=== PATIENT | male | born 1935 | race Caucasian/White ===

== ENCOUNTER 2017-12-07 19:15 | Emergency (ER) | payer MEDICARE, OTHER ==
[2017-12-07 21:12] LABS: #Eosinphils 0.2 thou/uL (0.0-0.7); #Lymphocytes 2.7 thou/uL (1.20-3.40); #Monocytes 0.7 thou/uL (0.11-0.59); #Neutrophils 5.1 thou/uL (1.40-6.50); %Basophils 0.4 % (0.0-1.0); %Eosinophils 2.1 % (0.0-10.0); %Lymphocytes 30.8 % (21.0-51.0); %Monocytes 7.7 % (0.0-10.0); Hemoglobin 13.5 g/dL (14.0-18.0); Mean Corpuscular HGB CONC 33.1 g/dL (32.0-36.0); Mean Corpuscular Hemoglobin 32.1 pg (27.0-31.0); Mean Corpuscular Volume 96.8 fl (80.0-94.0); Mean Platelet Volume 10.4 fL (7.4-10.4); Platelet Count 158 thou/uL (130-400); Red Blood Cell (RBC) Count 4.21 mill/uL (4.70-6.10); White Blood Cell (WBC) Count 8.6 thou/uL (4.8-10.8)
[2017-12-07 21:33] LABS: ALT (SGPT) 8 U/L (8-55); AST (SGOT) 9 U/L (5-34); Albumin 3.8 g/dL (3.4-4.8); Alkaline Phosphatase 70 U/L (40-150); Anion Gap 14 mmol/L (10-20); BUN (Urea Nitrogen) 32 mg/dL (8.4-25.7); Bilirubin, Total 0.6 mg/dL (0.2-1.2); Calc. Creatinine Clearance 0 mL/min (70-130); Calcium 9.1 mg/dL (7.8-10.44); Carbon Dioxide 23 mmol/L (23-31); Chloride 104 mmol/L (98-107); Estimated GFR-MDRD 48; Globulin 3.1 g/dL (2.4-3.5); Glucose 307 mg/dL (83-110); Potassium 4.2 mmol/L (3.5-5.1); Protein, Total 6.9 g/dL (5.8-8.1); Sodium 137 mmol/L (136-145)
[2017-12-07 21:37] LABS: CKMB 1.1 ng/mL (0-6.6); Troponin I Less than 0.010 ng/mL (< 0.028)
--- NOTE | 2017-12-07 22:15 | RAD ---
PORTABLE AP CHEST X-RAY 12/07/17 HISTORY: Fall secondary to weakness. COMPARISON: 03/25/17 FINDINGS: Cardiac silhouette is magnified by projection but stable in size from the prior exam. There is elevat ion of the right hemidiaphragm. There are linear increased densities at the left lung base which coul d be related to superimposition of structures or atelectasis. Lungs are otherwise clear. Vascular panda cifications are seen in an ectatic thoracic aorta. No other interval change. IMPRESSION: 1. Mild elevation of the right hemidiaphragm. 2. Linear density left lung base which may represent atelectasis and/or superimposition of struc tures. No definite consolidation or pleural fluid is present. 3. Remote right sided rib fractures. 4. No acute cardiopulmonary process. POS: [facility]
[2017-12-07 22:28] LABS: Bilirubin Negative (Negative); Blood, Urine Negative (Negative); Clarity CLEAR (Clear); Glucose, Urine (Dipstick) 100 mg/dL (Negative); Leukocyte Negative (Negative); Nitrite Negative (Negative); Protein, Urine (Dipstick) Negative (Neg-Trace); Specific Gravity, Urine 1.022 (1.002-1.036); Urobilinogen 0.2 mg/dL (0.2-1.0); pH, Urine 5.5 (5.0-9.0)
== END 2017-12-08 04:25 ==
LOC: ERS 19:15
DX: R53.1 Weakness (principal); R26.2 Difficulty in walking, not elsewhere classified; E03.9 Hypothyroidism, unspecified; J44.9 Chronic obstructive pulmonary disease, unspecified; E11.9 Type 2 diabetes mellitus without complications; I10 Essential (primary) hypertension; Z87.891 Personal history of nicotine dependence; Z79.82 Long term (current) use of aspirin; Z79.899 Other long term (current) drug therapy; Z79.84 Long term (current) use of oral hypoglycemic drugs
CPT/HCPCS: 36415; 36416; 71045; 80053; 81003; 82553; 84484; 85025; 93005; 96360

== ENCOUNTER 2018-01-08 09:51 | Inpatient (IN) | payer MEDICARE, OTHER ==
[2018-01-08 10:32] LABS: #Basophils 0.1 thou/uL (0.0-0.2); #Eosinphils 0.3 thou/uL (0.0-0.7); #Lymphocytes 2.9 thou/uL (1.20-3.40); #Monocytes 0.9 thou/uL (0.11-0.59); #Neutrophils 7.5 thou/uL (1.40-6.50); %Basophils 0.9 % (0.0-1.0); %Eosinophils 2.2 % (0.0-10.0); %Lymphocytes 24.5 % (21.0-51.0); %Monocytes 8.1 % (0.0-10.0); %Neutrophils 64.2 % (42.0-75.0); Hemoglobin 12.9 g/dL (14.0-18.0); Mean Corpuscular HGB CONC 33.6 g/dL (32.0-36.0); Mean Corpuscular Hemoglobin 32.7 pg (27.0-31.0); Mean Corpuscular Volume 97.5 fl (80.0-94.0); Mean Platelet Volume 8.7 fL (7.4-10.4); Platelet Count 242 thou/uL (130-400); RBC Distribution Width 11.5 % (11.5-14.5); Red Blood Cell (RBC) Count 3.95 mill/uL (4.70-6.10); White Blood Cell (WBC) Count 11.7 thou/uL (4.8-10.8)
[2018-01-08 10:37] LABS: Prothrombin Time 13.4 SEC (12.0-14.7)
[2018-01-08 10:39] LABS: PTT 22.4 SEC (22.9-36.1)
[2018-01-08 10:47] LABS: ALT (SGPT) 10 U/L (8-55); AST (SGOT) 20 U/L (5-34); Albumin 3.7 g/dL (3.4-4.8); Alkaline Phosphatase 111 U/L (40-150); Anion Gap 15 mmol/L (10-20); BUN (Urea Nitrogen) 22 mg/dL (8.4-25.7); Bilirubin, Total 0.5 mg/dL (0.2-1.2); Calc. Creatinine Clearance 0 mL/min (70-130); Calcium 9.5 mg/dL (7.8-10.44); Carbon Dioxide 20 mmol/L (23-31); Chloride 109 mmol/L (98-107); Estimated GFR-MDRD 53; Globulin 3.3 g/dL (2.4-3.5); Glucose 106 mg/dL (83-110); Potassium 4.3 mmol/L (3.5-5.1); Sodium 140 mmol/L (136-145)
[2018-01-08 10:50] LABS: CKMB 1.7 ng/mL (0-6.6); Troponin I Less than 0.010 ng/mL (< 0.028)
--- NOTE | 2018-01-08 13:28 | CT ---
CT BRAIN: DATE: 01/08/18. COMPARISON: Comparison is made to previous exam from 03/10/16. FINDINGS: Noncontrast-enhanced CT images of the brain were obtained. Images demonstrate cortical atrophy and deep white matter ischemic changes. Multiple old areas of cerebellar infarctions seen. Areas of hypodensity are also seen in the left posterior frontal lobe region compatible with old area s of stroke. No acute stroke seen. IMPRESSION: No evidence of acute intracranial abnormality is seen. Findings discussed with Dr. Lynn at 10:17 a.m. on 01/08/18. CODE CR POS: [facility]ANNA
[2018-01-08 14:21] LABS: Bilirubin Negative (Negative); Blood, Urine Negative (Negative); Clarity CLEAR (Clear); Glucose, Urine (Dipstick) Negative (Negative); Leukocyte Negative (Negative); Nitrite Negative (Negative); Protein, Urine (Dipstick) Negative (Neg-Trace); Specific Gravity, Urine 1.015 (1.002-1.036); Urobilinogen 0.2 mg/dL (0.2-1.0); pH, Urine 5.5 (5.0-9.0)
--- NOTE | 2018-01-08 14:23 | RAD ---
PORTABLE CHEST: History: 83-year-old with right sided weakness. Date: 01-08-18 Comparison: 12-07-17 FINDINGS: AP chest demonstrates mild pulmonary vascular congestion. No evidence of effusions, pneumonia, or pne umothorax is seen. IMPRESSION: Unremarkable AP chest. POS: [facility]
[2018-01-08 16:34] LABS: Troponin I Less than 0.010 ng/mL (< 0.028)
[2018-01-08] MEDS ORDERED: Dextrose 50% Abboject 50 ML SYRINGE SLOW IVP PRN ×2 (17:52→17:53)
[2018-01-08] MEDS ORDERED: Dextrose 5% in Water 1,000 ML IV PRN ×2 (17:52→17:53)
[2018-01-08] MEDS ORDERED: Acetaminophen 325 MG TAB PO PRN (17:53)
[2018-01-08 19:08] LABS: Troponin I Less than 0.010 ng/mL (< 0.028)
[2018-01-08] MEDS: Sodium Chloride 0.9% 1,000 ML IV SCH (20:35)
[2018-01-08] MEDS: Famotidine 20 MG TAB PO SCH (20:36)
[2018-01-09 03:19] VITALS: BMI 35.8
[2018-01-09] MEDS: Sodium Chloride 0.9% 1,000 ML IV SCH ×2 (04:27→15:20)
[2018-01-09 05:32] LABS: #Basophils 0.1 thou/uL (0.0-0.2); #Eosinphils 0.3 thou/uL (0.0-0.7); #Monocytes 0.7 thou/uL (0.11-0.59); #Neutrophils 3.5 thou/uL (1.40-6.50); %Eosinophils 3.5 % (0.0-10.0); %Lymphocytes 39.4 % (21.0-51.0); %Monocytes 9.7 % (0.0-10.0); %Neutrophils 46.3 % (42.0-75.0); Hemoglobin 11.9 g/dL (14.0-18.0); Mean Corpuscular Hemoglobin 32.5 pg (27.0-31.0); Mean Corpuscular Volume 95.5 fl (80.0-94.0); Mean Platelet Volume 8.8 fL (7.4-10.4); Platelet Count 251 thou/uL (130-400); RBC Distribution Width 11.3 % (11.5-14.5); Red Blood Cell (RBC) Count 3.65 mill/uL (4.70-6.10); White Blood Cell (WBC) Count 7.5 thou/uL (4.8-10.8)
[2018-01-09 06:15] LABS: Anion Gap 13 mmol/L (10-20); BUN (Urea Nitrogen) 20 mg/dL (8.4-25.7); Calc. Creatinine Clearance 78 mL/min (70-130); Carbon Dioxide 21 mmol/L (23-31); Chloride 107 mmol/L (98-107); Estimated GFR-MDRD 66; Glucose 100 mg/dL (83-110); Potassium 4.2 mmol/L (3.5-5.1); Sodium 137 mmol/L (136-145)
[2018-01-09] MEDS: Enoxaparin Sodium 40 MG/0.4 ML SYRINGE SC SCH (08:49)
[2018-01-09] MEDS: Famotidine 20 MG TAB PO SCH ×2 (08:49→21:11)
[2018-01-09] MEDS ORDERED: FLU VACC TS2017-18 (>65YR) 0.5 ML SYRINGE IM ONE (09:00)
--- NOTE | 2018-01-09 11:48 | HP ---
ADMITTING PHYSICIAN: You Josue M.D. CHIEF COMPLAINT: AMS, TIA, rule out CVA. HISTORY OF PRESENT ILLNESS: This is an 83-year-old male who is extremely confused and altered, not p roviding a good history. History apparently obtained from ER chart review. Per chart review, the kelsey coker apparently had motor deficits at the facility where he lives at and was brought by EMS to the ospital. The patient at this point in time states that he does not know where he is and not sure why he is here and states he would like to go back home. No family at bedside. PAST MEDICAL HISTORY: Per chart review, hypothyroidism, hyperlipidemia, chronic obstructive pulmonar y disease, history of diabetes. PAST SURGICAL HISTORY: Left knee replacement, hernia repair. SOCIAL HISTORY: Unknown. FAMILY HISTORY: Unknown. ALLERGIES: Unknown. HOME MEDICATIONS: Unknown. Supposedly his facility is faxing over the medication list in an hour or 2. REVIEW OF SYSTEMS: Twelve point review of systems not possible given the patient's symptomatic prese ntation. PHYSICAL EXAMINATION: VITAL SIGNS: Blood pressure 125/56, respiratory rate 18, pulse of 74, temperature 98, saturation is 97% on room air. GENERAL: No acute distress. HEENT: Pupils equal, round, react to light and accommodation. Normocephalic, atraumatic. NECK: Supple, nontender, mobile thyroid. LUNGS: Clear to auscultation bilaterally, aerating well. No respiratory distress. CARDIOVASCULAR: Regular rate and rhythm. S1 and S2. No murmurs, rubs or gallops appreciated. ABDOMEN: Rotund, positive bowel sounds, soft. EXTREMITIES: 2+ peripheral pulses. No edema. NEUROLOGIC: The patient is alert and oriented to person only. Moving all extremities following some commands, answering questions inappropriately. LABORATORY DATA: Hemoglobin 12. BMP: Bicarb 21, otherwise BMP and CBC are normal. Urinalysis nega tive. Brain CT scan done at time of admission shows no evidence of acute intracranial abnormalities. ASSESSMENT AND PLAN: 1. Altered mental status. 2. Transient ischemic attack, rule out cerebrovascular accident. 3. Hypothyroidism. 4. Diabetes mellitus type 2. 5. Hyperlipidemia. PLAN: Admit to observation. We will await med list review from living facility from where [facility] prior to considering neurological consultation. The patient's symptoms appear to be stable at t his point in time. We will continue with current management, sliding scale insulin, GI and DVT proph ylaxis. Discontinue plans in 24-48 hours depending on patient's clinical status. We will get a repe at CT scan tomorrow as MRI not possible given hardware and the patient's left knee. No family at bed side, sitter in the room.
[2018-01-09] MEDS: Lorazepam 1 MG TAB PO PRN (12:17)
[2018-01-10] MEDS: Sodium Chloride 0.9% 1,000 ML IV SCH ×2 (00:49→08:54)
--- NOTE | 2018-01-10 07:51 | CT ---
HEAD CT WITHOUT CONTRAST: Date: 01/10/18 COMPARISON: 01/08/18. HISTORY: Possible CVA. TECHNIQUE: Serial axial CT imaging at 5 mm intervals from vertex through skull base without contrast. FINDINGS: The visualized paranasal sinuses/mastoid air cells are well aerated. No displaced calvarial fracture. Extensive encephalomalacia noted within the posterior aspect of bilateral cerebellar hemispheres, sta ble, suggesting prior bilateral PICA infarctions. There is extensive periventricular, deep, and subco rtical white matter hypodensity, evidence of extensive small vessel disease. No intracranial hemorrha ge or midline shift. There is atherosclerotic calcification of the cavernous carotid arteries and dis sampson vertebral arteries. IMPRESSION: Multifocal prior infarction and significant small vessel disease. Acute infarction cannot be excluded on the basis of routine head CT. No intracranial hemorrhage is seen. POS: [facility]
[2018-01-10] MEDS: Famotidine 20 MG TAB PO SCH ×2 (08:53→21:09)
[2018-01-10] MEDS: Enoxaparin Sodium 40 MG/0.4 ML SYRINGE SC SCH (08:53)
[2018-01-10] MEDS ORDERED: cloNIDine 0.1 MG TAB PO PRN (14:36)
--- NOTE | 2018-01-10 14:38 | PDOC.PN ---
- Subjective Encounter Start Date: 01/10/18 Encounter Start Time: 09:00 Patient seen and examined, remains thoroughly confused, sitter at bedside, no changes in condition, no family at bedside. - Objective Vital Signs & Weight: Vital Signs (12 hours) Temp Pulse Pulse Pulse Resp BP BP 01/10/18 12:00 97.3 F L 74 20 01/10/18 08:41 77 73 143/66 H 116/71 01/10/18 08:00 98.2 F 78 20 01/10/18 07:46 98.2 F 78 20 01/10/18 04:04 97.4 F L 66 16 BP Pulse Ox 01/10/18 12:00 110/67 93 L 01/10/18 08:41 01/10/18 08:00 01/10/18 07:46 124/71 94 L 01/10/18 04:04 136/73 94 L Weight Weight 242 lb 6.4 oz I&O: 01/09/18 01/10/18 01/11/18 06:59 06:59 06:59 Intake Total 1439 1129 Output Total 150 Balance 1289 1129 Result Diagrams: 01/09/18 04:43 01/09/18 04:43 Additional Labs: Accuchecks 01/10/18 01/10/18 01/09/18 10:51 05:45 20:44 POC Glucose 151 H 126 H 153 H 01/09/18 17:03 POC Glucose 112 H Phys Exam - Physical Examination Constitutional: NAD HEENT: PERRLA, moist MMs, sclera anicteric Neck: no nodes, no JVD, supple Respiratory: no wheezing, no rales, no rhonchi Cardiovascular: RRR, no significant murmur, no rub Gastrointestinal: soft, non-tender, no distention Musculoskeletal: no edema, pulses present Neurological: non-focal, normal sensation Dx/Plan (1) Altered mental state Code(s): R41.82 - ALTERED MENTAL STATUS, UNSPECIFIED Status: Acute (2) Hypothyroid Code(s): E03.9 - HYPOTHYROIDISM, UNSPECIFIED Status: Acute (3) Diabetic autonomic neuropathy associated with type 2 diabetes mellitus Status: Acute (4) Weakness Code(s): R53.1 - WEAKNESS Status: Acute - Plan * check TSH * blood and urine cultures * chronic significant severe small vessel damage on CT scan * will consult neurology for now * no family at bedside * patient remains confused
[2018-01-10 16:12] LABS: Folate (Folic Acid) 11.3 ng/mL (7.0-31.4)
[2018-01-10] MEDS: Gemfibrozil 600 MG TAB PO SCH (16:48)
[2018-01-10] MEDS: Mometasone/Formoterol 120 PUFF INHALER INH SCH (18:34)
[2018-01-10 18:44] LABS: ALT (SGPT) 13 U/L (8-55); AST (SGOT) 25 U/L (5-34); Albumin 3.5 g/dL (3.4-4.8); Alkaline Phosphatase 101 U/L (40-150); Anion Gap 10 mmol/L (10-20); BUN (Urea Nitrogen) 19 mg/dL (8.4-25.7); Bilirubin, Total 0.4 mg/dL (0.2-1.2); Calc. Creatinine Clearance 78 mL/min (70-130); Carbon Dioxide 25 mmol/L (23-31); Chloride 106 mmol/L (98-107); Estimated GFR-MDRD 66; Globulin 3.2 g/dL (2.4-3.5); Glucose 184 mg/dL (83-110); Potassium 4.1 mmol/L (3.5-5.1); Protein, Total 6.7 g/dL (5.8-8.1); Sodium 137 mmol/L (136-145)
--- NOTE | 2018-01-10 19:47 | CON ---
DATE OF CONSULTATION: 01/10/2018 NEUROLOGY CONSULTATION CONSULTING PHYSICIAN: Hospitalist Service. IMPRESSION: 1. Probable vascular dementia. 2. Diabetes. 3. Hypertension. 4. Prior strokes with dysmetria on the right and some dysarthria. PLAN: 1. T4, cortisol and comprehensive metabolic panel. 2. Aspirin. 3. Continue blood sugar and blood pressure management. Mr. Jace Olivo is an 83-year-old gentleman, who was brought into the emergency room for reported altered mental status. There is no family available to give me history. The patient reports that he has no idea why he was brought to the hospital. He has trouble recalling that he was actually in [facility] and what city was located in. He is without any complaints of headache, nausea, dizziness , chest pain or shortness of breath. He has had 2 CT since admission, which showed fairly extensive small vessel ischemic changes in the periventricular regions as well as bilateral cerebellar infarcts that appear chronic. His laboratory studies are limited, but with normal B12 and folate levels. Hi s TSH was elevated. He has been afebrile since admission. He otherwise had no other particular comp laints. PAST MEDICAL HISTORY: Hypertension, diabetes, obesity, and hyperlipidemia. ALLERGIES: None. SOCIAL HISTORY: Unknown. FAMILY HISTORY: Unknown. REVIEW OF SYSTEMS: Otherwise, negative according to the patient. PHYSICAL EXAMINATION: GENERAL: He is an overweight elderly gentleman lying in bed in no distress. VITAL SIGNS: Stable. He has been afebrile. HEENT: Pupils equal and reactive. Conjunctivae clear. Oropharynx is a bit dry, but otherwise shannon l appearing. NECK: Supple. EXTREMITIES: No cyanosis or edema noted. NEUROLOGIC: He was alert and cooperative. His speech was mildly dysarthric. He followed commands a ppropriately. He was only oriented to person. He did not know his correct age or any other pertinen t facts. There is no agitation or delirium. His cranial nerve exam was unremarkable. Motor exam sh owed good strength bilaterally. Cerebellar testing showed dysmetria on the right side with finger-to -nose testing. No abnormal movements were seen. Gait was not tested. Sensation seemed to be symmet heide. Plantar responses were downgoing. LABORATORY STUDIES: EKG showed normal sinus rhythm. SUMMARY: This is an 83-year-old gentleman, who appears to have dementia, which I suspect is primaril y vascular in origin and is not showing any signs of a delirium. There is a little that can be done as far as I can see at this point his TSH is elevated and he may need thyroid replacement, probable n ursing home placement will be necessary.
[2018-01-10] MEDS: Lorazepam 1 MG TAB PO PRN (21:09)
[2018-01-10] MEDS: Atorvastatin Calcium 40 MG TAB PO SCH (21:09)
[2018-01-10] MEDS: Lisinopril 20 MG TAB PO SCH (21:09)
[2018-01-11 05:53] LABS: #Basophils 0.1 thou/uL (0.0-0.2); #Eosinphils 0.2 thou/uL (0.0-0.7); #Lymphocytes 2.3 thou/uL (1.20-3.40); #Monocytes 0.9 thou/uL (0.11-0.59); #Neutrophils 5.7 thou/uL (1.40-6.50); %Basophils 0.6 % (0.0-1.0); %Eosinophils 2.2 % (0.0-10.0); %Lymphocytes 25.5 % (21.0-51.0); %Monocytes 9.6 % (0.0-10.0); %Neutrophils 62.1 % (42.0-75.0); Hemoglobin 12.6 g/dL (14.0-18.0); Mean Corpuscular HGB CONC 33.3 g/dL (32.0-36.0); Mean Corpuscular Hemoglobin 31.6 pg (27.0-31.0); Mean Platelet Volume 8.5 fL (7.4-10.4); Platelet Count 253 thou/uL (130-400); RBC Distribution Width 11.3 % (11.5-14.5); White Blood Cell (WBC) Count 9.1 thou/uL (4.8-10.8)
[2018-01-11 06:07] LABS: Anion Gap 15 mmol/L (10-20); BUN (Urea Nitrogen) 15 mg/dL (8.4-25.7); Calc. Creatinine Clearance 88 mL/min (70-130); Calcium 9.2 mg/dL (7.8-10.44); Carbon Dioxide 20 mmol/L (23-31); Chloride 108 mmol/L (98-107); Estimated GFR-MDRD 75; Glucose 189 mg/dL (83-110); Potassium 3.9 mmol/L (3.5-5.1); Sodium 139 mmol/L (136-145)
[2018-01-11] MEDS: Insulin Regular 300 UNITS/3 ML VIAL SC PRN (06:44)
[2018-01-11] MEDS: Mometasone/Formoterol 120 PUFF INHALER INH SCH ×2 (07:56→19:19)
[2018-01-11] MEDS: Gemfibrozil 600 MG TAB PO SCH ×2 (08:36→16:16)
[2018-01-11] MEDS: Enoxaparin Sodium 40 MG/0.4 ML SYRINGE SC SCH (08:36)
[2018-01-11] MEDS: Lisinopril 20 MG TAB PO SCH ×2 (08:37→21:56)
[2018-01-11] MEDS: Famotidine 20 MG TAB PO SCH ×2 (08:37→21:56)
[2018-01-11] MEDS ORDERED: Levothyroxine Sodium 125 MCG TAB PO SCH (09:00)
--- NOTE | 2018-01-11 14:24 | PDOC.PN ---
- Subjective Encounter Start Date: 01/11/18 Encounter Start Time: 14:21 CC; Altered mental status sub: pt denies dyspnea - Objective Vital Signs & Weight: Vital Signs (12 hours) Temp Pulse Pulse Pulse Resp BP BP 01/11/18 12:00 98.4 F 59 L 20 01/11/18 09:37 68 67 143/77 H 01/11/18 08:37 133/68 01/11/18 08:00 98.4 F 59 L 20 01/11/18 07:56 68 16 01/11/18 03:15 97.5 F L 73 18 BP BP Pulse Ox 01/11/18 12:00 131/63 96 01/11/18 09:37 128/75 01/11/18 08:37 01/11/18 08:00 133/68 92 L 01/11/18 07:56 94 L 01/11/18 03:15 140/101 H 92 L I&O: 01/10/18 01/11/18 01/12/18 06:59 06:59 06:59 Intake Total 1460 Output Total 320 Balance 1140 Result Diagrams: 01/11/18 04:58 01/11/18 04:58 Additional Labs: Accuchecks 01/11/18 01/11/18 01/10/18 10:51 06:13 22:32 POC Glucose 140 H 182 H 211 H 01/10/18 16:45 POC Glucose 201 H Dx/Plan - Plan - Physical Examination Constitutional: NAD HEENT: PERRLA, moist MMs, sclera anicteric Neck: no nodes, no JVD, supple Respiratory: no wheezing, no rales, no rhonchi Cardiovascular: RRR, no significant murmur, no rub Gastrointestinal: soft, non-tender, no distention Musculoskeletal: no edema, pulses present Neurological: non-focal, normal sensation Dx/Plan (1) Altered mental state Code(s): R41.82 - ALTERED MENTAL STATUS, UNSPECIFIED Status: Acute (2) Hypothyroid Code(s): E03.9 - HYPOTHYROIDISM, UNSPECIFIED Status: Acute (3) Diabetic autonomic neuropathy associated with type 2 diabetes mellitus Status: Acute (4) Weakness Code(s): R53.1 - WEAKNESS Status: Acute - Plan * TSH in range. Cortisol level stable. will check ammonia level * blood and urine cultures no growth so far * chronic significant severe small vessel damage on CT scan * appreciate neuro input, no further workup * reviewed PT note, needs placement d/w pt & RN
[2018-01-11] MEDS: Atorvastatin Calcium 40 MG TAB PO SCH (21:55)
[2018-01-12 05:11] LABS: #Eosinphils 0.3 thou/uL (0.0-0.7); #Lymphocytes 2.1 thou/uL (1.20-3.40); #Monocytes 0.9 thou/uL (0.11-0.59); #Neutrophils 6.3 thou/uL (1.40-6.50); %Basophils 0.2 % (0.0-1.0); %Eosinophils 3.5 % (0.0-10.0); %Lymphocytes 22.2 % (21.0-51.0); %Monocytes 8.8 % (0.0-10.0); %Neutrophils 65.3 % (42.0-75.0); Mean Corpuscular HGB CONC 33.8 g/dL (32.0-36.0); Mean Corpuscular Hemoglobin 31.7 pg (27.0-31.0); Mean Platelet Volume 8.3 fL (7.4-10.4); Platelet Count 242 thou/uL (130-400); RBC Distribution Width 11.3 % (11.5-14.5); Red Blood Cell (RBC) Count 4.08 mill/uL (4.70-6.10); White Blood Cell (WBC) Count 9.6 thou/uL (4.8-10.8)
[2018-01-12 05:21] LABS: Anion Gap 12 mmol/L (10-20); BUN (Urea Nitrogen) 14 mg/dL (8.4-25.7); Calc. Creatinine Clearance 92 mL/min (70-130); Calcium 9.3 mg/dL (7.8-10.44); Carbon Dioxide 24 mmol/L (23-31); Chloride 106 mmol/L (98-107); Estimated GFR-MDRD 79; Glucose 169 mg/dL (83-110); Sodium 138 mmol/L (136-145)
[2018-01-12] MEDS ORDERED: Levothyroxine Sodium 125 MCG TAB PO SCH (06:00)
[2018-01-12] MEDS: Insulin Regular 300 UNITS/3 ML VIAL SC PRN ×3 (06:34→16:51)
[2018-01-12] MEDS: Famotidine 20 MG TAB PO SCH (08:51)
[2018-01-12] MEDS: Lisinopril 20 MG TAB PO SCH (08:51)
[2018-01-12] MEDS: Gemfibrozil 600 MG TAB PO SCH ×2 (08:51→16:51)
[2018-01-12] MEDS: Enoxaparin Sodium 40 MG/0.4 ML SYRINGE SC SCH (08:52)
--- NOTE | 2018-01-12 15:07 | PDOC.EVN ---
Event Note - Event Note Event Note: [id number] dc summary dictated
[2018-01-12 16:02] VITALS: BP 132/58; TEMP 97.6
[2018-01-12] MEDS: Mometasone/Formoterol 120 PUFF INHALER INH SCH (19:04)
--- NOTE | 2018-01-13 14:26 | DIS ---
DATE OF ADMISSION: 01/09/2018 DATE OF DISCHARGE: 01/12/2018 DISCHARGE DIAGNOSES: 1. Altered mental status, improved. 2. Hypothyroidism. 3. Hypertension. 4. Vascular dementia. DISCHARGE CONDITION: Stable. DISPOSITION: Home. PROCEDURE DURING HOSPITAL STAY: CT head, cannot able to do MRI because of some possible metal rods, but was consulted Neurology. HOSPITAL COURSE: The patient is an 83-year-old male who came with altered mental status. 1. Altered mental status. The patient was seen by Neurology during the hospital stay suspect secondary to vascular dementia. Patient is stable. The patient also had TSH done which showed some slight elevation up to 5.1, so patient was advised to follow up with his PCP as an outpatient and adv ised to continue levothyroxine at this time. 2. Hypertension. Blood pressure monitored. Advised to continue same medication. 3. Hyperlipidemia, advised to continue gemfibrozil. On the day of discharge, vital signs are stable. PT did see the patient and recommended rehabilitati on, but family refused rehabilitation and wants to take the patient back to the [facility], so marilyn ent was discharged back to [facility]. PHYSICAL EXAMINATION: VITAL SIGNS: On the day of discharge, temperature 98.3, heart rate 75, respiration 20, pulse ox 93% on room air, blood pressure 127/74. GENERAL: The patient appears comfortable. CARDIOVASCULAR: S1, S2 present. No murmurs, no rubs, no gallops. CENTRAL NERVOUS SYSTEM: Awake, follows commands. Speech clear. PSYCHIATRIC: Mood calm. GASTROINTESTINAL: Abdomen is soft and nontender. The patient is stable at the time of discharge. Discharge time 45 minutes.
== END 2018-01-12 19:04 | DRG 948 ==
LOC: ERS 09:51 → INTOOBSV 15:16 → ERHOLD 15:16 → 2SE 19:49 → OBSVTOIN 01-10 15:29 → 2SE 01-10 17:40
PROVIDERS: ADMIT Internal Medicine Nephrology; ATTEND Internal Medicine Nephrology
DX: R41.82 Altered mental status, unspecified (principal); E11.43 Type 2 diabetes mellitus with diabetic autonomic (poly)neuropathy; I69.951 Hemiplegia and hemiparesis following unspecified cerebrovascular disease affecting right dominant side; G45.9 Transient cerebral ischemic attack, unspecified; F01.50 Vascular dementia, unspecified severity, without behavioral disturbance, psychotic disturbance, mood disturbance, and anxiety; E66.9 Obesity, unspecified; R53.1 Weakness; J44.9 Chronic obstructive pulmonary disease, unspecified; E03.9 Hypothyroidism, unspecified; E78.5 Hyperlipidemia, unspecified; Z96.652 Presence of left artificial knee joint; I10 Essential (primary) hypertension; Z68.35 Body mass index [BMI] 35.0-35.9, adult; Z87.891 Personal history of nicotine dependence; I69.992 Facial weakness following unspecified cerebrovascular disease; I44.0 Atrioventricular block, first degree; Z96.651 Presence of right artificial knee joint
CPT/HCPCS: 36415; 36416; 51701; 70450; 71045; 80048; 80053; 81003; 82140; 82533; 82553; 82607; 82746; 84439; 84443; 84484; 85025; 85610; 85730; 87040; 87086; 90471; 90682; 93005; 94664; G0008; G8978-GP-CN; G8979-GP-CL; G8987-GO-CL; G8988-GO-CK; J1650; J1815; Q2036

== ENCOUNTER 2018-02-25 10:52 | Inpatient (IN) | payer MEDICARE, OTHER ==
[2018-02-25 11:31] LABS: #Eosinphils 0.2 thou/uL (0.0-0.7); #Lymphocytes 3.3 thou/uL (1.20-3.40); #Monocytes 1.2 thou/uL (0.11-0.59); #Neutrophils 13.2 thou/uL (1.40-6.50); %Basophils 0.2 % (0.0-1.0); %Eosinophils 0.9 % (0.0-10.0); %Lymphocytes 18.5 % (21.0-51.0); %Monocytes 6.4 % (0.0-10.0); Hemoglobin 13.5 g/dL (14.0-18.0); Mean Corpuscular HGB CONC 33.7 g/dL (32.0-36.0); Mean Corpuscular Hemoglobin 32.2 pg (27.0-31.0); Mean Corpuscular Volume 95.8 fl (80.0-94.0); Mean Platelet Volume 8.4 fL (7.4-10.4); Platelet Count 260 thou/uL (130-400); RBC Distribution Width 11.8 % (11.5-14.5); Red Blood Cell (RBC) Count 4.19 mill/uL (4.70-6.10); White Blood Cell (WBC) Count 17.9 thou/uL (4.8-10.8)
--- NOTE | 2018-02-25 11:45 | CT ---
CT HEAD NONCONTRAST DATE: 02/25/18 HISTORY: Altered mental status. COMPARISON: 01/18/18. FINDINGS: There is no evidence of acute intracranial hemorrhage or infarct. Encephalomalacia from old infarcts involving each cerebellar hemisphere and the left cerebral hemisphere are similar in appearance to th e prior exam. There is no mass effect or shift of midline structures. IMPRESSION: Chronic-type findings are stable. No acute intracranial abnormalities are demonstrated on noncontrast CT head. POS: [facility]
[2018-02-25 11:53] LABS: Bilirubin Negative (Negative); Blood, Urine Negative (Negative); Clarity CLEAR (Clear); Glucose, Urine (Dipstick) Negative (Negative); Leukocyte Negative (Negative); Nitrite Negative (Negative); Protein, Urine (Dipstick) Negative (Neg-Trace); Specific Gravity, Urine 1.005 (1.002-1.036); Urobilinogen 0.2 mg/dL (0.2-1.0)
[2018-02-25 11:54] LABS: ALT (SGPT) 15 U/L (8-55); AST (SGOT) 36 U/L (5-34); Albumin 3.8 g/dL (3.4-4.8); Alkaline Phosphatase 135 U/L (40-150); Anion Gap 14 mmol/L (10-20); BUN (Urea Nitrogen) 23 mg/dL (8.4-25.7); Bilirubin, Total 0.7 mg/dL (0.2-1.2); CK (CPK) 923 U/L (30-200); Calc. Creatinine Clearance 0 mL/min (70-130); Calcium 9.4 mg/dL (7.8-10.44); Carbon Dioxide 21 mmol/L (23-31); Chloride 103 mmol/L (98-107); Estimated GFR-MDRD 62; Globulin 3.6 g/dL (2.4-3.5); Glucose 91 mg/dL (83-110); Potassium 4.2 mmol/L (3.5-5.1); Protein, Total 7.4 g/dL (5.8-8.1); Sodium 134 mmol/L (136-145)
[2018-02-25 12:07] LABS: Troponin I Less than 0.010 ng/mL (< 0.028)
[2018-02-25 12:18] LABS: CKMB 6.9 ng/mL (0-6.6)
[2018-02-25] MEDS ORDERED: Dextrose 50% Abboject 50 ML SYRINGE ONE (13:09)
--- NOTE | 2018-02-25 13:25 | RAD ---
CHEST 1 VIEW: Date: 02/25/18 HISTORY: Leukocytosis. COMPARISON: 01/08/18. FINDINGS: Cardiac silhouette is magnified and partially obscured by shallow inspiration and overlying soft tiss ues. Pulmonary vasculature upper limits of normal. Mediastinum midline with aortic calcification. No lobar consolidation or evidence of pneumothorax. IMPRESSION: Atherosclerosis. Chronic-type findings. No lobar consolidation is apparent. POS: [facility]
[2018-02-25] MEDS ORDERED: Sodium Chloride 0.9% 1,000 ML IV SCH (16:02)
[2018-02-25] MEDS ORDERED: Dextrose 5% in Water 1,000 ML IV PRN (16:06)
[2018-02-25] MEDS ORDERED: Dextrose 50% Abboject 50 ML SYRINGE IVP PRN (16:06)
[2018-02-25] MEDS ORDERED: cloNIDine 0.1 MG TAB PO PRN (17:27)
[2018-02-25] MEDS: Dextrose 5 %-0.45 % NaCl 1,000 ML IV SCH (17:48)
[2018-02-25] MEDS: Cefepime 1 GM, Admixture Fee 1 EACH in Sterile Water 10 ML SLOW IVP SCH (17:48)
[2018-02-25] MEDS: Mometasone/Formoterol 120 PUFF INHALER INH SCH (19:01)
[2018-02-25] MEDS ORDERED: Cefepime 2 GM, Syringe 2.5 ML in Sterile Water 10 ML SLOW IVP SCH (21:00)
--- NOTE | 2018-02-25 21:28 | HP ---
DATE OF ADMISSION: 02/25/2018 CHIEF COMPLAINT: Altered mental status. HISTORY OF PRESENT ILLNESS: Mr. Olivo is an 83-year-old male with past medical history of diabetes, hypertension, dementia, who was found to be lethargic this morning. The patient has been r unning low blood sugars during the night. The patient received Glucagon and something to eat, but bl ood sugar did go up somewhat to more than 100, but the patient this morning was lethargic, not respon ding well, and not communicating well, so the EMS was called because of change in mental status. EMS found the patient less responsive. He did not open his eyes when he was called, so he was brought t o the emergency room. In the ER, the patient was evaluated. The patient is more awake and his blood sugar dropped to 50s, so he received D50 in the ER after which his blood sugar went up, but he was n oted to have leukocytosis and also pneumonia as per the ER physician, so patient received cefepime an d vancomycin and being admitted for further evaluation and management. PAST MEDICAL HISTORY: 1. Vascular dementia. 2. Hypertension. 3. Diabetes mellitus. 4. Hypothyroidism. 5. Diabetic neuropathy. 6. Chronic obstructive pulmonary disease. 7. Lumbar spinal stenosis. 8. Morbid obesity. 9. Hyperlipidemia. 10. History of falls. 11. Chronic diastolic heart failure. PAST SURGICAL HISTORY: 1. Status post left knee replacement. 2. Status post right shoulder surgery. 3. Status post hiatal hernia repair. CURRENT MEDICATIONS: Pepcid 20 mg b.i.d., aspirin 81 mg daily, levothyroxine 125 mcg daily, gemfibro zil 600 b.i.d., lisinopril 20 mg b.i.d., metformin 1000 mg b.i.d., DuoNebs q.i.d., Breo Ellipta once a day inhaler. ALLERGIES: No known drug allergies. FAMILY HISTORY: Nothing of interest. SOCIAL HISTORY: Patient is resident of a [facility], [place]. REVIEW OF SYSTEMS: Unable to obtain from patient because the patient is awake, but not very communic ate. PHYSICAL EXAMINATION: VITAL SIGNS: Temperature 98, pulse 73, respirations 20, blood pressure 130/60. HEENT: Head is normocephalic, atraumatic. Pupils are equal and reactive to light. Nasopharynx is p aron and dry. Hard and soft palate, no lesions seen. SKIN: Skin turgor decreased. NECK: Supple. No JVD. LUNGS: Bilateral air entry present, no rales, no rhonchi. HEART: S1, S2 regular. ABDOMEN: Soft, no distention, no tenderness. Normal bowel sounds. RECTAL: Deferred. CENTRAL NERVOUS SYSTEM: No new focal neurologic deficit: LABORATORY AND X-RAY FINDINGS: CBC shows WBC 17.9, hemoglobin 13, hematocrit 40, platelets 260. Met abolic panel: Sodium 134, potassium 4.8, chloride 103, CO2 of 21, BUN 23, creatinine 1.1, glucose 91 . Prothrombin time 13, INR 1. Urinalysis negative. Chest x-ray shows questionable infiltrate right lung. EKG shows normal sinus rhythm, no acute ST-T wave changes seen. ASSESSMENT: 1. Severe hypoglycemia, symptomatic. 2. Metabolic encephalopathy. 3. Questionable pneumonia. 4. Hypertension. 5. Diabetes mellitus. 6. Vascular dementia. 7. Hypothyroidism. 8. Hyperlipidemia. 9. History of spinal stenosis. PLAN: 1. Vital signs q.4 hours. 2. Activity: As tolerated. 3. Allergies: No known drug allergies. 4. Hep-Lock. 5. Diet: Regular. 6. Accu-Cheks q.3 hours. 7. Sliding scale mild with regular insulin. 8. Continue half-way medication, hold metformin. 9. Cefepime 1 gram IV. 10. DuoNebs q.i.d.
[2018-02-25] MEDS: Famotidine 20 MG TAB PO SCH (22:26)
[2018-02-25] MEDS: Lisinopril 20 MG TAB PO SCH (22:26)
[2018-02-26] MEDS: Cefepime 1 GM, Admixture Fee 1 EACH in Sterile Water 10 ML SLOW IVP SCH ×3 (00:09→16:56)
[2018-02-26] MEDS: Levothyroxine Sodium 125 MCG TAB PO SCH (05:43)
[2018-02-26 06:28] LABS: #Basophils 0.1 thou/uL (0.0-0.2); #Eosinphils 0.3 thou/uL (0.0-0.7); #Lymphocytes 2.7 thou/uL (1.20-3.40); #Monocytes 0.8 thou/uL (0.11-0.59); #Neutrophils 4.3 thou/uL (1.40-6.50); %Basophils 0.8 % (0.0-1.0); %Eosinophils 3.7 % (0.0-10.0); %Lymphocytes 33.1 % (21.0-51.0); %Monocytes 9.7 % (0.0-10.0); %Neutrophils 52.7 % (42.0-75.0); Hemoglobin 12.1 g/dL (14.0-18.0); Mean Corpuscular HGB CONC 33.8 g/dL (32.0-36.0); Mean Corpuscular Hemoglobin 31.8 pg (27.0-31.0); Mean Platelet Volume 8.5 fL (7.4-10.4); Platelet Count 238 thou/uL (130-400); RBC Distribution Width 11.6 % (11.5-14.5); Red Blood Cell (RBC) Count 3.81 mill/uL (4.70-6.10); White Blood Cell (WBC) Count 8.2 thou/uL (4.8-10.8)
[2018-02-26 06:38] LABS: Anion Gap 12 mmol/L (10-20); BUN (Urea Nitrogen) 19 mg/dL (8.4-25.7); Calc. Creatinine Clearance 84 mL/min (70-130); Calcium 9.2 mg/dL (7.8-10.44); Carbon Dioxide 22 mmol/L (23-31); Chloride 105 mmol/L (98-107); Estimated GFR-MDRD 69; Glucose 86 mg/dL (83-110); Potassium 4.2 mmol/L (3.5-5.1); Sodium 135 mmol/L (136-145)
[2018-02-26] MEDS: Mometasone/Formoterol 120 PUFF INHALER INH SCH ×2 (06:46→19:18)
[2018-02-26] MEDS ORDERED: Prevnar 13-Val Conj/PF 0.5 ML SYRINGE IM ONE (09:00)
[2018-02-26] MEDS: Gemfibrozil 600 MG TAB PO SCH ×2 (10:07→16:55)
[2018-02-26] MEDS: Famotidine 20 MG TAB PO SCH ×2 (10:08→21:05)
[2018-02-26] MEDS: Aspirin 81 mg Enteric Coated Tablet PO SCH (10:08)
[2018-02-26] MEDS: Lisinopril 20 MG TAB PO SCH ×2 (10:08→21:05)
[2018-02-26] MEDS: Dextrose 5 %-0.45 % NaCl 1,000 ML IV SCH (10:31)
--- NOTE | 2018-02-26 12:21 | RAD ---
AP CHEST: Date: 02/26/18 HISTORY: Leukocytosis. Mental status change. COMPARISON: 02/25/18. FINDINGS: Poor inspiration. Linear atelectasis in the left lower lung again noted. Rib deformities on the right suggesting old fractures with pleural thickening. Lung thayer otherwise appear clear and well aerate d. No vascular congestion. IMPRESSION: Suboptimal exam due to poor inspiration. No acute interval change noted. POS: [facility]
[2018-02-26] MEDS: Insulin Regular 300 UNITS/3 ML VIAL SC PRN (21:55)
[2018-02-27] MEDS: Dextrose 5 %-0.45 % NaCl 1,000 ML IV SCH ×2 (00:13→17:20)
[2018-02-27] MEDS: Cefepime 1 GM, Admixture Fee 1 EACH in Sterile Water 10 ML SLOW IVP SCH ×3 (00:13→17:21)
[2018-02-27] MEDS: Levothyroxine Sodium 125 MCG TAB PO SCH (05:56)
[2018-02-27] MEDS: Mometasone/Formoterol 120 PUFF INHALER INH SCH ×2 (07:16→18:42)
[2018-02-27] MEDS: Aspirin 81 mg Enteric Coated Tablet PO SCH (08:42)
[2018-02-27] MEDS: Lisinopril 20 MG TAB PO SCH ×2 (08:42→23:38)
[2018-02-27] MEDS: Gemfibrozil 600 MG TAB PO SCH ×2 (08:42→17:29)
[2018-02-27] MEDS: Famotidine 20 MG TAB PO SCH ×2 (08:43→23:39)
[2018-02-27] MEDS: Insulin Regular 300 UNITS/3 ML VIAL SC PRN (17:26)
[2018-02-28] MEDS: Cefepime 1 GM, Admixture Fee 1 EACH in Sterile Water 10 ML SLOW IVP SCH ×3 (01:12→17:14)
[2018-02-28 05:39] LABS: #Eosinphils 0.4 thou/uL (0.0-0.7); #Lymphocytes 1.8 thou/uL (1.20-3.40); #Monocytes 0.9 thou/uL (0.11-0.59); %Basophils 0.2 % (0.0-1.0); %Eosinophils 4.3 % (0.0-10.0); %Lymphocytes 17.8 % (21.0-51.0); %Monocytes 8.9 % (0.0-10.0); %Neutrophils 68.7 % (42.0-75.0); Hemoglobin 12.7 g/dL (14.0-18.0); Mean Corpuscular Hemoglobin 33.1 pg (27.0-31.0); Mean Corpuscular Volume 94.5 fl (80.0-94.0); Mean Platelet Volume 9.5 fL (7.4-10.4); Platelet Count 248 thou/uL (130-400); RBC Distribution Width 11.4 % (11.5-14.5); Red Blood Cell (RBC) Count 3.84 mill/uL (4.70-6.10); White Blood Cell (WBC) Count 10.2 thou/uL (4.8-10.8)
[2018-02-28 05:42] LABS: Hemoglobin A1c 6.6 % (4.0-6.0)
[2018-02-28 05:43] LABS: Anion Gap 13 mmol/L (10-20); BUN (Urea Nitrogen) 17 mg/dL (8.4-25.7); Calc. Creatinine Clearance 75 mL/min (70-130); Calcium 9.2 mg/dL (7.8-10.44); Carbon Dioxide 23 mmol/L (23-31); Chloride 103 mmol/L (98-107); Estimated GFR-MDRD 62; Glucose 310 mg/dL (83-110); Potassium 4.3 mmol/L (3.5-5.1); Sodium 135 mmol/L (136-145)
[2018-02-28] MEDS: Levothyroxine Sodium 125 MCG TAB PO SCH (06:27)
[2018-02-28] MEDS: Dextrose 5 %-0.45 % NaCl 1,000 ML IV SCH (06:34)
[2018-02-28] MEDS: Mometasone/Formoterol 120 PUFF INHALER INH SCH ×2 (06:53→19:18)
[2018-02-28] MEDS: Aspirin 81 mg Enteric Coated Tablet PO SCH (08:55)
[2018-02-28] MEDS: Gemfibrozil 600 MG TAB PO SCH ×3 (08:55→17:32)
[2018-02-28] MEDS: Famotidine 20 MG TAB PO SCH ×2 (08:55→20:44)
[2018-02-28] MEDS: Lisinopril 20 MG TAB PO SCH ×2 (08:55→20:44)
[2018-02-28] MEDS: Insulin Regular 300 UNITS/3 ML VIAL SC PRN (11:59)
--- NOTE | 2018-02-28 19:36 | CON ---
DATE OF CONSULTATION: 02/28/2018 REASON FOR CONSULTATION: Anorexia. HISTORY OF PRESENT ILLNESS: Mr. Olivo is an 83-year-old gentleman who was admitted to the hospital with altered mental status. Apparently at the [facility], he was found to have a ch victoriano in mental status and was not very arousable. EMS was summoned and his sugar was in the 50s. He re on initial presentation, his white count was 17,000 on 02/25/2018, but that dropped to 8.2 on 6th. His hemoglobin has been stable between 13 and 12, platelets have been normal. His chemistries pres entation was notable for sodium 134. Electrolytes normal. BUN and creatinine are 23 and 1.2, glucos e 107 on presentation at 10 in the morning went drop down to 52 and then 38 and be given D50, which r esponded to. His AST and ALT were 36 and 15, CK 923. Troponins are negative. His sugars has been up now and actually this morning, the patient's nurse notes he did eat. He is ve ry confused, trying to pull out IV, take his pulse ox off, monitors off. I talked with the nurse, sh e was not clear about the consult in terms of whether it was for a problem with eating or overall los s of appetite or more for possible PEG tube placement. I have called the patient's son, he states th at he did talk about PEG tube placement a couple days ago with Dr. Burch. The son states he did not understand why his father has been so confused recently and I did review his chart and noted avelino t he has been admitted more than 3 or 4 times this year with issues related to vascular dementia. He has had a previous workup in the Neurology with imaging studies showing quite a bit of vascular calc ifications and small vessel disease as well as normal electrolytes, B12, and just mildly elevated TSH of 5. I talked with his son, his father month or so, it seemed to make more sense when we talked to him, but more recently he has been somewhat confused, though he does seem that he thinks he recogniz es him and he can be fed with at this time. The nurse today notes that ever since eating, he has been really out and sleepy. His sugars have bee n checked and as of 11:00 a.m. was 259. He has been in no distress, but it is very difficult for her to arouse. She is unsure if he was up all night. She is not aware of him receiving any sedatives l ast night. PAST MEDICAL HISTORY: Advancing vascular dementia with multiple admissions recently, hypertension, d iabetes, hypothyroidism, diabetic neuropathy, COPD, lumbar spinal stenosis, morbid obesity, hypertens ion, history of multiple falls, now in the correction and chronic diastolic heart failure. PAST SURGICAL HISTORY: Knee replacement, right shoulder surgery, hiatal hernia repair in the past. MEDICATIONS: In the correction, metformin 500 b.i.d., Catapres, Zestril, acetaminophen, Pepcid, Lo pid, aspirin, Lantus insulin, and inhaler. PRESENT MEDICATIONS: Tylenol, DuoNeb, aspirin, cefepime, clonidine, Pepcid, Lopid, levothyroxine, an d Zestril. PHYSICAL EXAMINATION: GENERAL: The patient is lying in bed. His eyes are closed with raising my voice and squeezing his h ands, checking the patient opens his eyes vaguely, but does not communicate. His pupils were equal a nd just tracking the room. He seems to fall back asleep. LUNGS: Clear. HEART: Regular rate and rhythm. ABDOMEN: Protuberant. He is overweight. There is no palpable hepatosplenomegaly. EXTREMITIES: No clubbing, cyanosis or edema. LABORATORY STUDIES: Sodium 135, potassium 4.3, BUN and creatinine are 17 and 1.2, glucose 310, calci um 9.2. Ammonia was checked when he had confusion issues on 01/12/2018 and it was normal. ASSESSMENT AND PLAN: 1. Advancing dementia. 2. Admission hypoglycemia likely related to being given oral hypoglycemics and then not eating. It does not seem he has had any overt pneumonia or UTI by his labs and cultures. I suspect this whole christina monsalve is just advancing of his dementia. I talked with the son about options of PEG tube placemen t versus palliative care. He initially felt he wanted to proceed with PEG tube, but now he is going to think about it. He is going to come and see his father this evening. He is not sure that he woul d to be kept alive on tube feeds. If he does not really know where he is and if his disease process is advancing without improvement, I will check back tomorrow and see what he has decided.
[2018-03-01] MEDS: Cefepime 1 GM, Admixture Fee 1 EACH in Sterile Water 10 ML SLOW IVP SCH ×3 (00:43→16:54)
[2018-03-01] MEDS: Dextrose 5 %-0.45 % NaCl 1,000 ML IV SCH (04:36)
[2018-03-01] MEDS: Levothyroxine Sodium 125 MCG TAB PO SCH (05:02)
[2018-03-01] MEDS: Mometasone/Formoterol 120 PUFF INHALER INH SCH ×2 (06:44→19:12)
[2018-03-01] MEDS: Lisinopril 20 MG TAB PO SCH (09:04)
[2018-03-01] MEDS: Aspirin 81 mg Enteric Coated Tablet PO SCH (09:04)
[2018-03-01] MEDS: Gemfibrozil 600 MG TAB PO SCH ×2 (09:04→16:55)
[2018-03-01] MEDS: Famotidine 20 MG TAB PO SCH ×2 (09:04→21:20)
[2018-03-01] MEDS: Insulin Regular 300 UNITS/3 ML VIAL SC PRN ×2 (11:59→17:00)
[2018-03-01 14:20] LABS: ALV-art Gradient 100.325 (0-20); Base Excess (BEa) -0.8 mEq/L (0 (+/-) 2.5); CO2 Tension 40.3 mmHg (35.0-45.0); Calcium, Ionized 1.2 mmol/L (1.12-1.30); Hematocrit-ABG 35.8 % (42.0-52.0); Hemoglobin (Hb) 11.4 g/dL (14.0-18.0); O2 Tension (PaO2) 134.5 mmHg (80.0-100.0); Puncture Site RRA; pH, Arterial 7.39 (7.35-7.45)
[2018-03-01 14:29] LABS: INR-International Normal Ratio 1.2; PTT 37.6 SEC (22.9-36.1)
[2018-03-01] MEDS: Sodium Chloride 0.9% 1,000 ML IV SCH (15:25)
--- NOTE | 2018-03-01 15:58 | CT ---
CT HEAD NONCONTRAST: 03/01/18 CLINICAL HISTORY: Altered mental status, lethargy. Reference made to 02/25/18. FINDINGS: Redemonstration of multifocal hypoattenuation of the bilateral cerebral and cerebellar hemispheres co mpatible with sequela from remote ischemia. There is no intracranial hemorrhage, mass effect or midli ne shift. Ex vacuo dilatation of ventricular system is again seen. IMPRESSION: Extensive chronic ischemic disease, including multifocal encephalomalacia both supratentorial and inf ratentorial in location, bilaterally. No intracranial hemorrhage or mass effect. Stroke alert results telephoned to the patient's physician, Fletcher Burch, 1432 hours, 03/01/18. Code CR POS: [facility]
[2018-03-01] MEDS: Amoxicillin/Potassium Clav 875 MG TAB PO SCH (21:20)
--- NOTE | 2018-03-02 03:19 | CON ---
DATE OF CONSULTATION: 03/01/2018 REFERRING PHYSICIAN: Dr. Fletcher Burch. REASON FOR CONSULTATION: Altered mental status. HISTORY OF PRESENT ILLNESS: Mr. Olivo is a pleasant 83-year-old male who has been concerned for michael luation of altered mental status. History is very limited as patient is unable to provide and there are no family member present at bedside, thus most of the history is obtained from the patient's medi panda chart as well as nurse assisting of the patient. Apparently, patient has a history of multiple s trokes and advanced dementia at baseline. According to the nurse, the patient is not oriented to per son, place or time or situation. He tends to repeat words at times, but does not follow any commands . First, he had presented to the hospital with worsening of mentation and he was found to have hypog lycemia on admission. On today, he has been evaluated by a nurse who is not his regular nurse and wa s noted that his confusion was worse, which prompted her to call code green and stroke alert was init iated. He had a CT head without contrast which showed no acute intracranial abnormalities. At that point, stroke alert was discontinued as they felt this is his baseline. I am being asked to further evaluate for this changes and confusion. Past medical history, past surgical history, family history, social history, current medications, and allergies could not be obtained. REVIEW OF SYSTEMS: Unable to perform. PHYSICAL EXAMINATION: VITAL SIGNS: Blood pressure of 109/53, pulse of 86, temperature of 97.3, respirations of 18, O2 sats of 96% on 2-liter nasal cannula. GENERAL: Well-developed, well-nourished male in no apparent distress. RESPIRATORY: Clear to auscultation bilaterally. CARDIOVASCULAR: Regular rate and rhythm. NEUROLOGIC: Mental status: The patient is awake and alert, but disoriented to person, place, and ti me, and situation. He does not follow any commands. Speech and language is very limited evaluation, he tends to only repeat few words. Cranial nerves: Pupils are 3 mm and reactive. Visual thayer ar e intact to threat on the left side, but does not blink to threat on the right side. Face appears sy mmetric. Motor exam showed normal tone and bulk with no drift on the left side. There may be mild d rift on the right upper extremity, always difficult to say. The sensory withdraws to both upper and lower extremities to pain. LABORATORY DATA: Reviewed, which included CBC, BMP, urinalysis done on 02/25, which is significant f or hemoglobin 12.7, hematocrit of 36.3. Sodium 135, glucose of 251, otherwise unremarkable. IMAGING STUDIES: CT head without contrast was reviewed which showed no acute intracranial abnormalit y. IMPRESSION: 1. Altered mental status, likely toxic metabolic encephalopathy. 2. Advanced dementia. Mr. Olivo is an 83-year-old male who had acute onset of changes in mentation, however, talking with the patient's nurse, the patient has advanced dementia and this may be his baseline as per his family . At this time, I will recommend continuing current medical management, no further neurological work up needed from my standpoint. Thank you for consultation.
[2018-03-02] MEDS: Sodium Chloride 0.9% 1,000 ML IV SCH ×2 (03:41→21:29)
[2018-03-02 04:59] LABS: #Eosinphils 0.6 thou/uL (0.0-0.7); #Lymphocytes 2.3 thou/uL (1.20-3.40); #Monocytes 0.9 thou/uL (0.11-0.59); #Neutrophils 5.5 thou/uL (1.40-6.50); %Basophils 0.4 % (0.0-1.0); %Eosinophils 6.3 % (0.0-10.0); %Lymphocytes 24.7 % (21.0-51.0); %Monocytes 9.7 % (0.0-10.0); %Neutrophils 58.8 % (42.0-75.0); Hemoglobin 12.4 g/dL (14.0-18.0); Mean Corpuscular HGB CONC 33.3 g/dL (32.0-36.0); Mean Corpuscular Volume 96.1 fl (80.0-94.0); Mean Platelet Volume 8.7 fL (7.4-10.4); Platelet Count 240 thou/uL (130-400); RBC Distribution Width 11.7 % (11.5-14.5); Red Blood Cell (RBC) Count 3.88 mill/uL (4.70-6.10); White Blood Cell (WBC) Count 9.4 thou/uL (4.8-10.8)
[2018-03-02 05:21] LABS: ALT (SGPT) 14 U/L (8-55); AST (SGOT) 22 U/L (5-34); Albumin 3.1 g/dL (3.4-4.8); Alkaline Phosphatase 102 U/L (40-150); Anion Gap 16 mmol/L (10-20); BUN (Urea Nitrogen) 22 mg/dL (8.4-25.7); Bilirubin, Total 0.5 mg/dL (0.2-1.2); Calc. Creatinine Clearance 63 mL/min (70-130); Carbon Dioxide 17 mmol/L (23-31); Chloride 107 mmol/L (98-107); Estimated GFR-MDRD 49; Globulin 3.4 g/dL (2.4-3.5); Glucose 211 mg/dL (83-110); Potassium 4.6 mmol/L (3.5-5.1); Protein, Total 6.5 g/dL (5.8-8.1); Sodium 135 mmol/L (136-145)
[2018-03-02 05:22] LABS: Thyroid Stimulating Hormone 11.7408 uIU/mL (0.35-4.94)
[2018-03-02] MEDS: Levothyroxine Sodium 125 MCG TAB PO SCH (05:37)
[2018-03-02 05:38] LABS: Free T4 (Free Thyroxine) 0.93 ng/dL (0.70-1.48)
[2018-03-02] MEDS: Mometasone/Formoterol 120 PUFF INHALER INH SCH ×2 (07:17→19:18)
[2018-03-02] MEDS: Dextrose 5 %-0.45 % NaCl 1,000 ML IV SCH ×2 (07:27→12:21)
--- NOTE | 2018-03-02 08:16 | PRG ---
DATE OF SERVICE: 03/01/2018 SUBJECTIVE: Mr. Olivo is awake today. He is eating with the help of the nurse. He is having some pocketing but no overt coughing or choking with meals. He had been cleared to take p.o. by Speech Pa thsalud. The nurse informs me that his son has decided that he does not want to proceed with the PEG tube as he is eating. OBJECTIVE: VITAL SIGNS: Temperature 96, pulse 53, blood pressure 103/63. ABDOMEN: Soft and nontender. NEUROLOGIC: The patient is mildly demented. He is able to answer yes/no questions. Denies pain or discomfort. However, he does not know where he is, the year or day. LABORATORY STUDIES: sugars have been over 270. ASSESSMENT AND PLAN: 1. Altered mental status, resolved. This is likely fluctuating related to his dementia. His acute exacerbation yesterday was related to hypoglycemia as he was not eating well, now he is. He is alert and oriented. 2. Fluctuating glucose. It may be reasonable to decrease doses of metformin and oral hypoglycemics and use p.r.n. medicines in light of his fluctuating mental status. 3. Altered mental status, chronic. 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 I have talked to the son about PEG tube feeding. When he was not eating at all, he was considering it. When he realized that a lot of the underlying issue s were his dementia which is progressive, he was not sure that his father wanted to be kept alive on tube feeds. At this time as the patient is eating better, the nurse informs me the patient's son whitfield s not want to proceed with the tube feed at this time. This sounds reasonable. I did inform him in our conversation last night that I would expect that as his dementia worsens, his dysphagia and reluc tance to take p.o. will increase as well. It may be reasonable if that occurs to consider palliative care. Alternatively, if the patient's son feels that his father wanted to be kept alive on tube fee ds, we can then visit that issue; although, in our last conversation, the son kind of determined that he probably did not want to go down that route.
[2018-03-02] MEDS: Lisinopril 20 MG TAB PO SCH (09:28)
[2018-03-02] MEDS: Amoxicillin/Potassium Clav 875 MG TAB PO SCH ×2 (09:28→21:28)
[2018-03-02] MEDS: Gemfibrozil 600 MG TAB PO SCH ×2 (09:28→18:05)
[2018-03-02] MEDS: Famotidine 20 MG TAB PO SCH ×2 (09:28→21:28)
[2018-03-02] MEDS: Aspirin 81 mg Enteric Coated Tablet PO SCH (09:29)
[2018-03-02] MEDS: Insulin Regular 300 UNITS/3 ML VIAL SC PRN ×3 (09:39→18:05)
[2018-03-02 10:02] VITALS: BMI 39.9
[2018-03-03 05:21] LABS: Anion Gap 13 mmol/L (10-20); BUN (Urea Nitrogen) 24 mg/dL (8.4-25.7); Calc. Creatinine Clearance 81 mL/min (70-130); Calcium 8.8 mg/dL (7.8-10.44); Carbon Dioxide 20 mmol/L (23-31); Chloride 108 mmol/L (98-107); Estimated GFR-MDRD 66; Glucose 160 mg/dL (83-110); Potassium 4.3 mmol/L (3.5-5.1); Sodium 137 mmol/L (136-145)
[2018-03-03] MEDS: Levothyroxine 150 MCG TAB PO SCH (06:04)
[2018-03-03] MEDS: Mometasone/Formoterol 120 PUFF INHALER INH SCH ×2 (06:48→19:01)
[2018-03-03] MEDS: Insulin Regular 300 UNITS/3 ML VIAL SC PRN ×3 (08:15→17:37)
[2018-03-03] MEDS: Lisinopril 20 MG TAB PO SCH (08:16)
[2018-03-03] MEDS: Aspirin 81 mg Enteric Coated Tablet PO SCH (08:17)
[2018-03-03] MEDS: Amoxicillin/Potassium Clav 875 MG TAB PO SCH ×2 (08:17→21:01)
[2018-03-03] MEDS: Acetaminophen 325 MG TAB PO PRN (08:17)
[2018-03-03] MEDS: Famotidine 20 MG TAB PO SCH ×2 (08:17→21:02)
[2018-03-03] MEDS: Gemfibrozil 600 MG TAB PO SCH ×2 (08:17→17:37)
[2018-03-04] MEDS: Levothyroxine 150 MCG TAB PO SCH (06:07)
[2018-03-04] MEDS: Mometasone/Formoterol 120 PUFF INHALER INH SCH (07:08)
[2018-03-04] MEDS: Gemfibrozil 600 MG TAB PO SCH (08:56)
[2018-03-04] MEDS: Amoxicillin/Potassium Clav 875 MG TAB PO SCH (08:56)
[2018-03-04] MEDS: Famotidine 20 MG TAB PO SCH (08:56)
[2018-03-04] MEDS: Acetaminophen 325 MG TAB PO PRN (08:56)
[2018-03-04] MEDS: Insulin Regular 300 UNITS/3 ML VIAL SC PRN (08:57)
[2018-03-04] MEDS: Aspirin 81 mg Enteric Coated Tablet PO SCH (08:57)
[2018-03-04] MEDS: Lisinopril 20 MG TAB PO SCH (08:57)
[2018-03-04 08:59] VITALS: BP 160/70
[2018-03-04 09:30] VITALS: TEMP 97.3
--- NOTE | 2018-03-06 10:16 | DIS ---
DATE OF ADMISSION: 02/25/2018 DATE OF DISCHARGE: 03/04/2018 ADMITTING DIAGNOSES: 1. Severe hypoglycemia, symptomatic. 2. Metabolic encephalopathy. 3. Questionable pneumonia. 4. Hypertension. 5. Diabetes mellitus. 6. Vascular dementia. 7. Hypothyroidism. 8. Hyperlipidemia. FINAL DIAGNOSES: 1. Severe hypoglycemia, symptomatic, improved. 2. Episode of unresponsiveness, improved. No evidence of acute cerebrovascular accident. 3. Leukocytosis, improved. 4. Pneumonia. 5. Hypertension, uncontrolled, improved. 6. Diabetes mellitus with hypoglycemia, insulin was stopped. 7. Vascular dementia. 8. Hypothyroidism. 9. Hyperlipidemia. 10. History of spinal stenosis. BRIEF SUMMARY OF HOSPITAL COURSE: Mr. Olivo is an 83-year-old male admitted because of sev ere hypoglycemia with metabolic encephalopathy. His blood sugar was in the 50s, but he was kept on I V fluids with D5W, after which his sugars were maintained high. Later on, he was started on a diet. He was able to eat somewhat, but he goes into kind of spells in the afternoon, where he becomes unre sponsive. CT scan was done and it did not show anything. No evidence of any acute infarct or hemorr guicho. The patient maybe not sleeping well in the night, so, he sleeps most of the time in the aftern oon. According to his son, that is pretty normal for him. The patient was monitored. His blood sug ars remained stable. His Lantus insulin was completely stopped. He was started on metformin only. His blood sugar remained around 150 to 180. In view of improvement, the patient was discharged. At the time of discharge, he was stable. His vital signs were stable. Lungs clear. Heart sounds regul ar. Abdomen was soft, nontender. Bowel sounds present. DISCHARGE MEDICATIONS: Include gemfibrozil 600 mg b.i.d., aspirin 81 mg daily, metformin 500 b.i.d., lisinopril dose was decreased to 20 mg daily, levothyroxine dose was increased to 150 mcg daily, sanjay nidine 0.1 mg q.6 hours p.r.n., Lantus insulin was discontinued, Breo Ellipta was continued, Tylenol p.r.n., Pepcid 20 b.i.d., Augmentin 875 b.i.d. for 1 week, and DuoNebs q.i.d. p.riona FOLLOWUP: The patient will be followed up at long term and he will have physical therapy.
== END 2018-03-04 11:07 | DRG 637 ==
LOC: ERS 10:52 → 2NO 13:09
PROVIDERS: ADMIT Internal Medicine; ATTEND Internal Medicine
DX: E11.649 Type 2 diabetes mellitus with hypoglycemia without coma (principal); G93.41 Metabolic encephalopathy; J18.9 Pneumonia, unspecified organism; I50.32 Chronic diastolic (congestive) heart failure; D72.829 Elevated white blood cell count, unspecified; F01.50 Vascular dementia, unspecified severity, without behavioral disturbance, psychotic disturbance, mood disturbance, and anxiety; E03.9 Hypothyroidism, unspecified; E11.40 Type 2 diabetes mellitus with diabetic neuropathy, unspecified; J44.9 Chronic obstructive pulmonary disease, unspecified; E78.5 Hyperlipidemia, unspecified; M48.00 Spinal stenosis, site unspecified; Z86.73 Personal history of transient ischemic attack (TIA), and cerebral infarction without residual deficits; M48.061 Spinal stenosis, lumbar region without neurogenic claudication; R63.0 Anorexia; Z87.891 Personal history of nicotine dependence; I11.0 Hypertensive heart disease with heart failure
CPT/HCPCS: 36415; 36416; 51701; 70450; 71045; 80048; 80053; 81003; 82550; 82553; 82805; 83036; 83605; 83880; 84439; 84443; 84484; 85025; 85610; 85730; 87040; 93005; 93010; 94640; 96361; 96365; 96374; A4216; G8996-GN-CK; G8997-GN-CK; J0692; J1815; J3370; J7620